=== PATIENT | male | born 1965 | race Caucasian/White ===

== ENCOUNTER 2023-11-13 11:59 | Emergency (ER) | payer MEDICAID, OTHER ==
[2023-11-13] MEDS ORDERED: Glucagon,Human Recombinant 1 MG Vial IM ONE (12:33)
[2023-11-13 12:48] LABS: BASOPHILS ABSOLUTE AUTO 0.08 K/uL (0.00-0.10); BASOPHILS PERCENT AUTO 0.5 % (0.1-1.3); EOSINOPHILS ABSOLUTE AUTO 0.08 K/uL (0.00-0.40); EOSINOPHILS PERCENT AUTO 0.5 % (0.0-5.4); HEMATOCRIT 43.8 % (38.4-49.7); HEMOGLOBIN 15.6 g/dL (12.9-16.9); IMMATURE GRAN ABSOLUTE AUTO 0.06 K/uL (0.00-0.23); IMMATURE GRAN PERCENT AUTO 0.4 % (0.0-0.7); LYMPHOCYTES ABSOLUTE AUTO 1.62 K/uL (0.8-3.3); MEAN CORPUSCULAR HEMOGLOBIN 32.4 pg (31.6-35.5); MEAN CORPUSCULAR HGB CONC 35.6 g/dL (31.6-35.5); MEAN CORPUSCULAR VOLUME 91.1 fL (81.4-99.0); MONOCYTES ABSOLUTE AUTO 1.06 K/uL (0.20-0.90); MONOCYTES PERCENT AUTO 7.2 % (3.3-12.6); NEUTROPHILS ABSOLUTE AUTO 11.79 K/uL (1.0-7.6); NEUTROPHILS PERCENT AUTO 80.4 % (40.0-78.1); PLATELET COUNT,PLT 339 K/uL (130-375); RED BLOOD CELL COUNT 4.81 M/uL (4.14-5.76); WHITE BLOOD CELL COUNT,WBC 14.7 K/uL (3.2-11.0)
[2023-11-13] MEDS: Sodium Chloride 0.9% 1,000 ML IV ONE (13:00)
[2023-11-13] MEDS: Ondansetron 4 MG/2 ML SDV IVPUSH ONE (13:02)
[2023-11-13] MEDS: Glucagon,Human Recombinant 1 MG Vial IVPUSH ONE (13:03)
[2023-11-13 13:09] LABS: A/G RATIO 1.5 (1.2-2.2); ALANINE AMINOTRANSFERASE,ALT 41 U/L (12-78); ALBUMIN 4.9 g/dL (3.4-5.0); ALKALINE PHOSPHATASE 80 U/L (46-116); ANION GAP 11.8 mmol/L (5.0-14.0); ASPARTATE AMNIOTRANSFERASE,AST 32 U/L (15-37); BILIRUBIN TOTAL 0.4 mg/dL (0.2-1.0); BLOOD UREA NITROGEN,BUN 16 mg/dL (7-18); CALCIUM 9.3 mg/dL (8.5-10.1); CARBON DIOXIDE,CO2 27 mmol/L (21-32); CHLORIDE,CL 103 mmol/L (100-108); CREATININE 0.9 mg/dL (0.8-1.3); ESTIMATED GFR 100 mL/min (>60); GLUCOSE RANDOM 114 mg/dL (74-106); POTASSIUM,K 3.9 mmol/L (3.6-5.2); PROTEIN TOTAL,TP 8.1 g/dL (6.4-8.2); SODIUM,NA 142 mmol/L (140-148)
== END 2023-11-13 15:13 | disposition home or self-care (01) ==
LOC: JP.ED 11:59 → JP.SDS 14:41
DX: T18.108A Unspecified foreign body in esophagus causing other injury, initial encounter (principal); Z79.82 Long term (current) use of aspirin; Z79.899 Other long term (current) drug therapy
CPT/HCPCS: 36415; 71046; 71046-26; 80053; 85025; 96361; 96374; 96375; 99284; 99284-25; J1611; J2405; J7030